=== PATIENT | female | born 1980 | race African-American/Black ===

== ENCOUNTER 2021-09-28 22:05 | Emergency (ER) | payer OTHER ==
[~2021-09-28] VITALS: Ht 157.5 cm; Wt 74.4 kg
[~2021-09-28 22:05] MED LIST: AUGMENTIN 875875 MG PO
[2021-09-28] MEDS ORDERED: NORVASC 2.5 MG2.5 M1 PO (22:47)
[2021-09-28] MEDS ORDERED: BUSPAR30 MG PO (22:48)
[2021-09-28] MEDS ORDERED: SPIRONOLACTONE50 MG PO (22:48)
[2021-09-28] MEDS ORDERED: PROVIGIL 100 M100 MG PO (22:49)
[2021-09-28] MEDS ORDERED: HYDROCHLOROTHIA25 M1 PO (22:50)
[2021-09-28 23:36] LABS: INFLUENZA A ANTIGEN Negative (Negative); INFLUENZA B ANTIGEN Negative (Negative)
[2021-09-29 03:48] VITALS: BP 130/88
== END 2021-09-29 03:48 | disposition home or self-care (01) ==
LOC: M.ERS 22:05
PROVIDERS: Emergency Medicine
DX: J06.9 Acute upper respiratory infection, unspecified (principal); Z20.822 Contact with and (suspected) exposure to COVID-19; I10 Essential (primary) hypertension; Z79.2 Long term (current) use of antibiotics; Z79.899 Other long term (current) drug therapy